=== PATIENT | male | born 1955 | race Caucasian/White ===

== ENCOUNTER 2020-11-03 07:49 | Outpatient (CLI) | payer MEDICARE ==
--- NOTE | 2020-11-03 08:46 | MRI ---
MRI LUMBAR SPINE NONCONTRAST: HISTORY: Back pain. Pain radiates down the right hip, groin and right leg. COMPARISON: None. FINDINGS: Appropriate T1 marrow signal intensity of the lumbar vertebrae. Lumbar spine vertebral body height is maintained. No fracture. No significant STIR hyperintensity to suggest ligamentous injury or vertebral body edema. Appropriate signal intensity of the visualized paraspinal muscles and solid organs. There are bilater al parapelvic cysts. Conus medullaris terminates at the upper aspect of L1. There are type I and type II Modic changes at the L1-L2 disc space. T12-L1:Adequate disc hydration. No posterior disc abnormality. No significant central canal stenosis. Patent bilateral neural foramina. L1-L2:Disc desiccation with moderate loss of disc space height. Broad-based disc bulge minimally abut s the ventral thecal sac. No significant central canal stenosis. Mild to moderate right and moderate left neural foraminal narrowing predominantly due to disc material. L2-L3:Adequate disc hydration. No significant loss of disc space height. No posterior disc abnormalit y. No significant central canal stenosis. Mild bilateral neural foraminal narrowing predominantly due to disc material and minimally to osteophytes originating from the inferior plate of L2. L3-L4:Adequate disc hydration. No significant loss of disc space height. There is a broad-based disc bulge, ligamentum flavum thickening and facet hypertrophy. There is mild central canal stenosis. There is contact upon the traversing right L4 nerve root with partial obscuration. There is an annula r fissure involving the right foraminal component the disc. Annular fissure abuts the foraminal right L3 nerve root. Mild right foraminal stenosis. Mild left foraminal stenosis. Trace fluid in both facet joints. L4-L5:5 adequate disc hydration. No significant loss of disc space height. There is a broad-based dis c bulge, ligamentum flavum thickening and facet hypertrophy. Mild to moderate central canal stenosis. Partial obscuration of bilateral traversing L5 nerve roots. Moderate bilateral neural gretchen inal narrowing due to disc material and facet hypertrophy. There is moderate bilateral facet hypertrophy. L5-S1:Mild loss of disc space height. Broad-based disc bulge. No significant central canal stenosis o r significant neural foraminal narrowing. IMPRESSION: Multilevel degenerative changes of the lumbar spine as detailed above. Transcribed Date/Time: 11/03/2020 9:01 AM
== END 2020-11-03 07:50 | disposition home or self-care (01) ==
LOC: TBSIIMAG 07:49
PROVIDERS: ATTEND Orthopaedic Surgery
DX: M54.9 Dorsalgia, unspecified (principal); M47.816 Spondylosis without myelopathy or radiculopathy, lumbar region
CPT/HCPCS: 72148

== ENCOUNTER 2021-03-21 10:16 | Outpatient (CLI) | payer MEDICARE ==
[2021-03-21 19:11] LABS: SARS-CoV-2 PCR by NAA Not Detected (NotDetected)
== END 2021-03-21 10:17 | disposition home or self-care (01) ==
LOC: LABBT 10:16
PROVIDERS: ATTEND Internal Medicine
DX: Z01.812 Encounter for preprocedural laboratory examination (principal); Z86.010 Personal history of colon polyps; Z20.822 Contact with and (suspected) exposure to COVID-19
CPT/HCPCS: U0003; U0005

== ENCOUNTER 2021-03-24 05:51 | Day surgery (SDC) | payer MEDICARE ==
[2021-03-23 09:35] VITALS: BMI 48.9
== END 2021-03-24 08:33 | disposition home or self-care (01) ==
LOC: SDC 05:51
PROVIDERS: ATTEND Internal Medicine
DX: Z12.11 Encounter for screening for malignant neoplasm of colon (principal); K21.9 Gastro-esophageal reflux disease without esophagitis; M19.90 Unspecified osteoarthritis, unspecified site; I10 Essential (primary) hypertension; F17.200 Nicotine dependence, unspecified, uncomplicated; E11.9 Type 2 diabetes mellitus without complications; Z53.8 Procedure and treatment not carried out for other reasons; Z86.010 Personal history of colon polyps; Z79.1 Long term (current) use of non-steroidal anti-inflammatories (NSAID); Z79.899 Other long term (current) drug therapy; Z88.0 Allergy status to penicillin; Z88.5 Allergy status to narcotic agent

== ENCOUNTER 2021-05-17 10:37 | Emergency (ER) | payer MEDICARE ==
[2021-05-17 11:33] LABS: #Basophils 0.1 thou/uL (0.0-0.2); #Eosinphils 0.2 thou/uL (0.0-0.7); #Lymphocytes 1.4 thou/uL (1.20-3.40); #Monocytes 0.4 thou/uL (0.11-0.59); #Neutrophils 6.5 thou/uL (1.40-6.50); %Basophils 0.6 % (0.0-1.0); %Eosinophils 2.5 % (0.0-10.0); %Lymphocytes 16.5 % (21.0-51.0); %Monocytes 4.4 % (0.0-10.0); %Neutrophils 76.1 % (42.0-75.0); Hemoglobin 11.3 g/dL (14.0-18.0); Mean Corpuscular HGB CONC 32.5 g/dL (32.0-36.0); Mean Corpuscular Hemoglobin 29.1 pg (27.0-31.0); Mean Corpuscular Volume 89.6 fL (78.0-98.0); Mean Platelet Volume 7.1 fL (7.4-10.4); Platelet Count 299 thou/uL (130-400); RBC Distribution Width 15.4 % (11.5-14.5); Red Blood Cell (RBC) Count 3.89 mill/uL (4.70-6.10); White Blood Cell (WBC) Count 8.6 thou/uL (4.8-10.8)
[2021-05-17 12:07] LABS: ALT (SGPT) 18 U/L (8-55); AST (SGOT) 13 U/L (5-34); Albumin 3.8 g/dL (3.4-4.8); Alkaline Phosphatase 67 U/L (40-110); Anion Gap 11 mmol/L (10-20); BUN (Urea Nitrogen) 22 mg/dL (8.4-25.7); Bilirubin, Total 0.3 mg/dL (0.2-1.2); Calc. Creatinine Clearance 0 mL/min (70-130); Calcium 9.2 mg/dL (7.8-10.44); Carbon Dioxide 26 mmol/L (23-31); Chloride 104 mmol/L (98-107); Globulin 2.9 g/dL (2.4-3.5); Glucose 148 mg/dL (80-115); Potassium 4.3 mmol/L (3.5-5.1); Protein, Total 6.7 g/dL (5.8-8.1); Sodium 137 mmol/L (136-145)
== END 2021-05-17 14:29 | disposition home or self-care (01) ==
LOC: ERS 10:37
DX: R07.89 Other chest pain (principal); E11.9 Type 2 diabetes mellitus without complications; I10 Essential (primary) hypertension; Z79.899 Other long term (current) drug therapy
CPT/HCPCS: 36415; 71045; 80053; 83880; 84484; 85025; 93005

== ENCOUNTER 2022-06-23 17:28 | Inpatient (IN) | payer MEDICARE ==
[~2022-06-23 17:28] MED LIST: Iopamidol-370 76% 500 ML 1 ML ONE
[2022-06-23 17:57] LABS: #Eosinphils 0.2 thou/uL (0.0-0.7); #Lymphocytes 1.9 thou/uL (1.20-3.40); #Monocytes 0.6 thou/uL (0.11-0.59); #Neutrophils 7.3 thou/uL (1.40-6.50); %Basophils 0.2 % (0.0-1.0); %Eosinophils 1.5 % (0.0-10.0); %Lymphocytes 18.9 % (21.0-51.0); %Monocytes 5.7 % (0.0-10.0); %Neutrophils 73.7 % (42.0-75.0); Mean Corpuscular Hemoglobin 27.9 pg (27.0-31.0); Mean Corpuscular Volume 87.3 fL (78.0-98.0); Platelet Count 274 thou/uL (130-400); RBC Distribution Width 15.1 % (11.5-14.5); Red Blood Cell (RBC) Count 4.29 mill/uL (4.70-6.10); White Blood Cell (WBC) Count 9.9 thou/uL (4.8-10.8)
[2022-06-23 18:18] LABS: ALT (SGPT) 30 U/L (8-55); AST (SGOT) 15 U/L (5-34); Albumin 3.6 g/dL (3.4-4.8); Alkaline Phosphatase 78 U/L (40-110); Anion Gap 12 mmol/L (10-20); BUN (Urea Nitrogen) 16 mg/dL (8.4-25.7); Bilirubin, Total 0.4 mg/dL (0.2-1.2); Calc. Creatinine Clearance 0 mL/min (70-130); Calcium 8.9 mg/dL (7.8-10.44); Carbon Dioxide 25 mmol/L (23-31); Chloride 104 mmol/L (98-107); Estimated GFR 82; Glucose 121 mg/dL (80-115); Lipase 9 U/L (8-78); Potassium 4.3 mmol/L (3.5-5.1); Protein, Total 6.6 g/dL (5.8-8.1); Sodium 137 mmol/L (136-145)
[2022-06-23] MEDS ORDERED: Nitroglycerin 0.4 MG TAB 1 EACH ONE (19:07)
[2022-06-23] MEDS ORDERED: Nitroglycerin 2% Ointment 1 INCH/1 GM Packet ONE (19:07)
[2022-06-23] MEDS ORDERED: hydrALAZINE 20 MG/ML VIAL ONE (19:07)
[2022-06-23] MEDS ORDERED: Aspirin 325 MG TAB ONE (19:07)
[2022-06-23 20:34] LABS: Troponin I Less than 0.010 ng/mL (< 0.028)
[2022-06-23] MEDS ORDERED: Acetaminophen 650 MG Suppository PR PRN (20:47)
[2022-06-23] MEDS ORDERED: Ondansetron ODT 4 MG TAB PO PRN (20:47)
[2022-06-23] MEDS ORDERED: Ondansetron PF 4 MG/2 ML Vial IVP PRN (20:47)
[2022-06-23] MEDS ORDERED: Acetaminophen 325 MG TAB PO PRN (20:47)
[2022-06-23] MEDS ORDERED: Nitroglycerin 0.4 MG TAB (25 Tab Bottle) SL PRN (21:20)
[2022-06-23 21:46] LABS: Bilirubin Negative (Negative); Blood, Urine Negative (Negative); Clarity Clear (Clear); Glucose, Urine (Dipstick) Normal (Negative); Ketone, Urine Negative (Negative); Leukocyte Negative Leu/uL (Negative); Nitrite Negative (Negative); Protein, Urine (Dipstick) Negative (Neg-Trace); Specific Gravity, Urine 1.029 (1.002-1.036); Urobilinogen Normal mg/dL (Less than 2); pH, Urine 5.5 (5.0-9.0)
[2022-06-23] MEDS ORDERED: Dextrose 50% Abboject 50 ML SYRINGE SLOW IVP PRN (21:53)
[2022-06-23] MEDS ORDERED: HumaLOG 300 UNITS/3 ML VIAL SC PRN ×2 (21:53)
[2022-06-23] MEDS ORDERED: Dextrose 5% in Water 1,000 ML IV PRN (21:53)
[2022-06-23] MEDS ORDERED: hydrALAZINE 20 MG/ML VIAL SLOW IVP PRN (21:56)
[2022-06-23 23:06] VITALS: BMI 50.5
[2022-06-24 04:36] LABS: #Eosinphils 0.2 thou/uL (0.0-0.7); #Lymphocytes 1.8 thou/uL (1.20-3.40); #Monocytes 0.5 thou/uL (0.11-0.59); #Neutrophils 6.1 thou/uL (1.40-6.50); %Basophils 0.3 % (0.0-1.0); %Eosinophils 1.9 % (0.0-10.0); %Lymphocytes 21.1 % (21.0-51.0); %Neutrophils 70.8 % (42.0-75.0); Hemoglobin 11.4 g/dL (14.0-18.0); Mean Corpuscular HGB CONC 32.8 g/dL (32.0-36.0); Mean Corpuscular Hemoglobin 28.4 pg (27.0-31.0); Mean Corpuscular Volume 86.7 fL (78.0-98.0); Mean Platelet Volume 7.4 fL (7.4-10.4); Platelet Count 226 thou/uL (130-400); RBC Distribution Width 14.9 % (11.5-14.5); Red Blood Cell (RBC) Count 4.02 mill/uL (4.70-6.10); White Blood Cell (WBC) Count 8.6 thou/uL (4.8-10.8)
[2022-06-24 04:45] LABS: Hemoglobin A1c 5.7 % (4.0-6.0)
[2022-06-24 05:00] LABS: Anion Gap 12 mmol/L (10-20); BUN (Urea Nitrogen) 15 mg/dL (8.4-25.7); Calc. Creatinine Clearance 167 mL/min (70-130); Calcium 8.7 mg/dL (7.8-10.44); Carbon Dioxide 24 mmol/L (23-31); Chloride 104 mmol/L (98-107); Estimated GFR 95; Glucose 115 mg/dL (80-115); Potassium 3.9 mmol/L (3.5-5.1); Sodium 136 mmol/L (136-145)
[2022-06-24] MEDS: Enoxaparin Sodium 40 MG/0.4 ML SYRINGE SC SCH (08:19)
[2022-06-24] MEDS: Aspirin Chewable 81 MG TAB PO SCH (08:19)
[2022-06-24] MEDS: hydrALAZINE 25 MG TAB PO SCH ×2 (08:20→21:47)
[2022-06-24] MEDS ORDERED: Regadenoson 0.4 MG/5 ML SYRINGE ONE (08:25)
[2022-06-25] MEDS ORDERED: hydrALAZINE 25 MG TAB PO SCH ×2 (09:00→15:00)
[2022-06-25] MEDS: Aspirin Chewable 81 MG TAB PO SCH (09:30)
[2022-06-25] MEDS: Enoxaparin Sodium 40 MG/0.4 ML SYRINGE SC SCH (09:33)
[2022-06-25] MEDS: Atorvastatin Calcium 20 MG TAB PO SCH (09:33)
[2022-06-25] MEDS ORDERED: Hydrochlorothiazide 25 MG TAB PO SCH (17:15)
[2022-06-25] MEDS ORDERED: Losartan 25 MG TAB PO SCH (17:15)
[2022-06-26] MEDS ORDERED: Losartan 25 MG TAB PO SCH (09:00)
[2022-06-26] MEDS ORDERED: Hydrochlorothiazide 25 MG TAB PO SCH (09:00)
[2022-06-26] MEDS: Aspirin Chewable 81 MG TAB PO SCH (10:22)
[2022-06-26] MEDS: Atorvastatin Calcium 20 MG TAB PO SCH (10:22)
[2022-06-26] MEDS: Enoxaparin Sodium 40 MG/0.4 ML SYRINGE SC SCH (10:23)
[2022-06-26 15:47] VITALS: BP 116/60; TEMP 98.4
== END 2022-06-26 19:00 | disposition home or self-care (01) | DRG 304 ==
LOC: ERS 17:28 → 2NO 19:57 → OBSVTOIN 06-24 17:16
PROVIDERS: ADMIT Student in an Organized Health Care Education/Training Program; ATTEND Family Medicine
PROC: 8E0ZXY6 Isolation (ICD-10-PCS; principal; 2022-06-23)
DX: I16.0 Hypertensive urgency (principal); U07.1 COVID-19; Z68.43 Body mass index [BMI] 50.0-59.9, adult; R07.89 Other chest pain; E11.9 Type 2 diabetes mellitus without complications; M10.9 Gout, unspecified; M19.90 Unspecified osteoarthritis, unspecified site; I10 Essential (primary) hypertension; G89.4 Chronic pain syndrome; E66.01 Morbid (severe) obesity due to excess calories; R00.1 Bradycardia, unspecified; Z88.0 Allergy status to penicillin; Z79.82 Long term (current) use of aspirin; Z87.891 Personal history of nicotine dependence; Z88.8 Allergy status to other drugs, medicaments and biological substances; Z79.899 Other long term (current) drug therapy
CPT/HCPCS: 36415; 36416; 71045; 71275; 74174; 78452; 80048; 80053; 81003; 83036; 83690; 83880; 84484; 85025; 93005; 93017; 93306; 94760; 96374; A9500; J0360; J1650; J1815; J2785; Q9967; U0003; U0005

== ENCOUNTER 2023-01-29 15:50 | Outpatient (CLI) | payer MEDICARE | END 2023-01-29 15:51 | disposition home or self-care (01) | LOC: BICCT 15:50 | PROVIDERS: ATTEND Nurse Practitioner Family | DX: R35.0 Frequency of micturition (principal); R31.9 Hematuria, unspecified; R10.9 Unspecified abdominal pain; N20.2 Calculus of kidney with calculus of ureter; K80.20 Calculus of gallbladder without cholecystitis without obstruction | CPT/HCPCS: 74176 ==

== ENCOUNTER 2023-04-03 10:20 | Emergency (ER) | payer MEDICARE ==
[2023-04-03 10:47] LABS: #Basophils 0.1 thou/uL (0.0-0.2); #Eosinphils 0.1 thou/uL (0.0-0.7); #Monocytes 0.6 thou/uL (0.11-0.59); #Neutrophils 8.6 thou/uL (1.40-6.50); %Basophils 0.5 % (0.0-1.0); %Eosinophils 0.7 % (0.0-10.0); %Lymphocytes 14.8 % (21.0-51.0); %Monocytes 5.6 % (0.0-10.0); %Neutrophils 77.9 % (42.0-75.0); Hemoglobin 12.6 g/dL (14.0-18.0); Mean Corpuscular HGB CONC 31.7 g/dL (32.0-36.0); Mean Corpuscular Hemoglobin 26.9 pg (27.0-31.0); Mean Corpuscular Volume 84.6 fl (78.0-98.0); Mean Platelet Volume 9.8 fL (7.4-10.4); Platelet Count 329 10x3/uL (130-400); RBC Distribution Width 16.1 % (11.5-14.5); Red Blood Cell (RBC) Count 4.69 mill/uL (4.70-6.10); White Blood Cell (WBC) Count 11.1 10x3/uL (4.8-10.8)
[2023-04-03 11:11] LABS: ALT (SGPT) 14 U/L (8-55); AST (SGOT) 12 U/L (5-34); Alkaline Phosphatase 69 U/L (40-110); Anion Gap 14 mmol/L (10-20); BUN (Urea Nitrogen) 22 mg/dL (8.4-25.7); Bilirubin, Total 0.5 mg/dL (0.2-1.2); Calc. Creatinine Clearance 0 mL/min (70-130); Calcium 9.4 mg/dL (7.8-10.44); Carbon Dioxide 22 mmol/L (23-31); Chloride 103 mmol/L (98-107); Estimated GFR 70; Globulin 3.6 g/dL (2.4-3.5); Glucose 119 mg/dL (80-115); Potassium 4.2 mmol/L (3.5-5.1); Protein, Total 7.6 g/dL (5.8-8.1); Sodium 135 mmol/L (136-145)
== END 2023-04-03 12:10 | disposition home or self-care (01) ==
LOC: ERS 10:20
DX: R42 Dizziness and giddiness (principal); R53.1 Weakness; D72.829 Elevated white blood cell count, unspecified; E11.9 Type 2 diabetes mellitus without complications; Z79.82 Long term (current) use of aspirin
CPT/HCPCS: 36415; 36416; 80053; 84484; 85025; 93005; 94760

== ENCOUNTER 2024-09-01 07:26 | Inpatient (IN) | payer MEDICARE ==
[2024-09-01] MEDS ORDERED: Heparin 5,000 UNITS/ML VIAL ONE (07:49)
[2024-09-01] MEDS ORDERED: EPINEPHrine 1 MG/ML VIAL ONE (07:49)
[2024-09-01] MEDS ORDERED: Bupivacaine PF 0.5% 30 ML VIAL ONE ×2 (07:50→09:05)
[2024-09-01] MEDS ORDERED: CEFAZOLIN 2 GM VIAL ONE (09:05)
[2024-09-01] MEDS ORDERED: PROPOFOL 20 ML ONE ×2 (09:07→10:34)
[2024-09-01] MEDS ORDERED: Rocuronium Bromide 10 MG/ML (10ML VIAL) ONE (09:07)
[2024-09-01] MEDS ORDERED: fentaNYL PF 100 MCG/2 ML SYRINGE ONE (09:07)
[2024-09-01] MEDS ORDERED: Glycopyrrolate 0.2 MG/ML 5 ML SYRINGE ONE ×2 (10:07→10:10)
[2024-09-01] MEDS ORDERED: fentaNYL 50 mcg/mL 1 mL Vial ONE ×3 (10:20→12:00)
[2024-09-01] MEDS ORDERED: Protamine Sulfate 50 MG/5 ML VIAL ONE (10:43)
[2024-09-01] MEDS ORDERED: Heparin 10,000 UNITS/ 10 ML VIAL ONE (10:43)
[2024-09-01] MEDS ORDERED: Dexamethasone 4 mg/ml Vial ONE (10:45)
[2024-09-01] MEDS ORDERED: Ondansetron PF 4 MG/2 ML Vial ONE (10:45)
[2024-09-01] MEDS ORDERED: SUGAMMADEX SODIUM 200 MG/2 ML VIAL ONE ×2 (10:46→10:54)
[2024-09-01] MEDS ORDERED: traMADol HCl 50 MG TAB PO PRN (11:19)
[2024-09-01] MEDS ORDERED: fentaNYL 50 mcg/mL 1 mL Vial SLOW IVP PRN (11:19)
[2024-09-01] MEDS ORDERED: Ipratropium/Albuterol 3 ML NEB NEB PRN (11:19)
[2024-09-01] MEDS ORDERED: Ondansetron PF 4 MG/2 ML Vial IVP PRN (11:19)
[2024-09-01] MEDS ORDERED: Acetaminophen 325 MG TAB PO PRN (11:19)
[2024-09-01] MEDS ORDERED: Phenylephrine 40 MG/NS 250 ML 250 ML IVPB PRN (11:19)
[2024-09-01] MEDS ORDERED: hydrALAZINE 20 MG/ML VIAL SLOW IVP PRN (11:19)
[2024-09-01] MEDS ORDERED: Nitroglycerin 50 MG/250 ML BOT 250 ML IVPB PRN (11:19)
[2024-09-01] MEDS ORDERED: Nitroglycerin 50 MG/250 ML BOT 250 ML ONE (11:22)
[2024-09-01] MEDS ORDERED: hydrALAZINE 20 MG/ML VIAL ONE (11:42)
[2024-09-01] MEDS: Sodium Chloride 0.9% 1,000 ML IV SCH (13:02)
[2024-09-01] MEDS: Ipratropium/Albuterol 3 ML NEB NEB SCH (14:02)
[2024-09-01] MEDS: Losartan 25 MG TAB PO SCH (14:17)
[2024-09-01] MEDS: Acetaminophen/Codeine 30-300mg Tablet PO PRN (14:39)
[2024-09-01] MEDS: CEFAZOLIN 2 GM in Sodium Chloride 0.9% 100 ML IVPB SCH (16:43)
[2024-09-01] MEDS: Atorvastatin Calcium 20 MG TAB PO SCH (20:10)
[2024-09-02] MEDS: Aspirin Chewable 81 MG TAB PO SCH (07:29)
[2024-09-02] MEDS: Losartan 25 MG TAB PO SCH (07:30)
[2024-09-02] MEDS: Clopidogrel Bisulfate 75 MG TAB PO SCH (07:32)
[2024-09-02 07:35] VITALS: TEMP 98.3
[2024-09-02 08:37] VITALS: BMI 33.7
[2024-09-08] MEDS ORDERED: Tirzepatide [Mounjaro] 10 MG/0.5 ML Pen.Injctr SC SCH (09:00)
== END 2024-09-02 09:10 | disposition home or self-care (01) | DRG 36 ==
LOC: SURG A 07:26 → CCU 12:40
PROVIDERS: ADMIT Thoracic Surgery (Cardiothoracic Vascular Surgery); ATTEND Thoracic Surgery (Cardiothoracic Vascular Surgery)
PROC: 037K3DZ Dilation of Right Internal Carotid Artery with Intraluminal Device, Percutaneous Approach (ICD-10-PCS; principal; 2024-09-01)
DX: I65.21 Occlusion and stenosis of right carotid artery (principal); Z88.0 Allergy status to penicillin; Z88.5 Allergy status to narcotic agent; Z88.8 Allergy status to other drugs, medicaments and biological substances; I10 Essential (primary) hypertension; E78.5 Hyperlipidemia, unspecified; E11.9 Type 2 diabetes mellitus without complications; M19.90 Unspecified osteoarthritis, unspecified site; F17.290 Nicotine dependence, other tobacco product, uncomplicated; Z79.01 Long term (current) use of anticoagulants; Z79.02 Long term (current) use of antithrombotics/antiplatelets; Z79.82 Long term (current) use of aspirin
CPT/HCPCS: 94640; C1769; C1876; C1884; J0171; J0360; J0665; J1100; J1642; J1644; J2405; J2704; J2720; J3010; J7030; J7620